=== PATIENT | male | born 1980 | race Caucasian/White ===

== ENCOUNTER 2021-06-09 08:15 | Emergency (ER) | payer SELFPAY | END 2021-06-09 12:37 | disposition home or self-care (01) | LOC: JD.ED 08:15 | DX: S69.91XA Unspecified injury of right wrist, hand and finger(s), initial encounter (principal); Z72.0 Tobacco use; W22.09XA Striking against other stationary object, initial encounter; Y99.0 Civilian activity done for income or pay | CPT/HCPCS: 29125; 73090-26-RT; 73090-RT; 73130-26-RT; 73130-RT; 99282; 99283-25 ==

== ENCOUNTER 2022-03-21 12:08 | Emergency (ER) | payer OTHER ==
[2022-03-21] MEDS ORDERED: Sodium Chloride 0.9% 10 ML Syringe FLUSH PRN (12:23)
[2022-03-21] MEDS ORDERED: Sodium Chloride 0.9% 1,000 ML IV ONE (12:38)
[2022-03-21] MEDS ORDERED: Ondansetron 4 MG/2 ML SDV IVPUSH ONE (12:38)
[2022-03-21] MEDS ORDERED: HYDROmorphone 1 MG/ML Syringe IVPUSH STA (12:38)
[2022-03-21] MEDS ORDERED: Iopamidol 612 MG/ML 100 ML Bottle IVPUSH ONE (12:45)
== END 2022-03-21 14:20 | disposition home or self-care (01) ==
LOC: JD.ED 12:08
DX: R10.10 Upper abdominal pain, unspecified (principal); Z96.89 Presence of other specified functional implants
CPT/HCPCS: 36415; 74177; 74177-26; 80053; 82977; 83690; 83735; 85025; 86140; 96361; 96374; 96375; 99284-25; J1170; J2405; J3490; J7030; Q9967

== ENCOUNTER 2022-10-05 02:35 | Emergency (ER) | payer OTHER ==
[2022-10-05 03:27] LABS: BASOPHILS ABSOLUTE AUTO 0.02 K/mm3 (0.01-0.08); BASOPHILS PERCENT AUTO 0.5 % (0.1-1.2); EOSINOPHILS ABSOLUTE AUTO 0.13 K/mm3 (0.04-0.54); HEMATOCRIT 44.7 % (40.1-51.0); HEMOGLOBIN 15.8 gm/dl (13.7-17.5); LYMPHOCYTES ABSOLUTE AUTO 1.02 K/mm3 (1.32-3.57); LYMPHOCYTES PERCENT AUTO 23.2 % (21.8-53.1); MEAN CORPUSCULAR HEMOGLOBIN 37.3 pg (25.7-32.2); MEAN CORPUSCULAR HGB CONC 35.3 g/dl (32.2-35.5); MEAN CORPUSCULAR VOLUME 105.4 fl (79.0-92.2); MONOCYTES ABSOLUTE AUTO 0.73 K/mm3 (0.30-0.82); MONOCYTES PERCENT AUTO 16.6 % (5.3-12.2); NEUTROPHILS PERCENT AUTO 56.7 % (34.0-67.9); PLATELET COUNT,PLT 153 K/mm3 (163-337); RED BLOOD CELL COUNT 4.24 M/mm3 (4.63-6.08)
[2022-10-05 03:56] LABS: A/G RATIO 1.2 (1-2); ALANINE AMINOTRANSFERASE,ALT 59 U/L (16-63); ALBUMIN 3.5 g/dl (3.4-5.0); ALKALINE PHOSPHATASE 69 U/L (46-116); ANION GAP 12.8 (5-15); ASPARTATE AMNIOTRANSFERASE,AST 49 U/L (15-37); BILIRUBIN TOTAL 0.5 mg/dL (0.2-1.0); BLOOD UREA NITROGEN,BUN 17 mg/dL (7-18); CALCIUM 9.1 mg/dL (8.5-10.1); CARBON DIOXIDE,CO2 27 mEq/L (21-32); CHLORIDE,CL 105 mEq/L (98-107); ESTIMATED GFR 96 mL/min (>60); GLUCOSE RANDOM 97 mg/dL (70-99); POTASSIUM,K 3.8 mEq/L (3.5-5.1); PROTEIN TOTAL,TP 6.5 g/dl (6.4-8.2); SODIUM,NA 141 mEq/L (136-145); TSH 1.531 uIU/mL (0.358-3.74)
[2022-10-05 04:06] LABS: ACETAMINOPHEN 0 ug/mL (10-30)
[2022-10-05 05:19] LABS: APPEARANCE,URINE CLEAR (Clear); BILIRUBIN,URINE NEGATIVE (Negative); COLOR,URINE YELLOW (Yellow); GLUCOSE,URINE NEGATIVE (Negative); KETONES,URINE NEGATIVE (Negative); LEUKOCYTE ESTERASE,URINE NEGATIVE (Negative); NITRITE,URINE NEGATIVE (Negative); OCCULT BLOOD,URINE NEGATIVE (Negative); PROTEIN,URINE NEGATIVE (Negative)
[2022-10-05 05:27] LABS: BARBITURATE SCREEN,URINE NEGATIVE (CUTOFF=200); BENZODIAZEPINES SCREEN,URINE NEGATIVE (CUTOFF=150); BUPRENORPHINE SCREEN,URINE NEGATIVE (CUTOFF=10); METHADONE SCREEN, URINE NEGATIVE (CUT0FF=200); METHAMPHETAMINES SCREEN, URINE NEGATIVE (CUTOFF=500); OXYCODONE SCREEN,URINE NEGATIVE (CUT0FF=100); PROPOXYPHENE SCREEN,URINE NEGATIVE (CUTOFF=300); THC SCREEN,URINE 20 NG/ML NEGATIVE (CUTOFF=50)
[2022-10-05 05:28] LABS: AMPHETAMINES SCREEN, URINE NEGATIVE (CUTOFF=500)
== END 2022-10-05 08:48 ==
LOC: JD.ED 02:35
DX: T14.91XA Suicide attempt, initial encounter (principal); Z20.822 Contact with and (suspected) exposure to COVID-19
CPT/HCPCS: 36415; 80053; 80143; 80179; 80306; 80307; 81003; 84443; 85025; 99285; U0002

== ENCOUNTER 2022-12-03 05:32 | Emergency (ER) | payer OTHER ==
[2022-12-03] MEDS ORDERED: Albuterol/Ipratropium 3.0-0.5 MG/3 ML Neb Soln NEB ONE (05:59)
[2022-12-03 06:20] LABS: INR 0.96; PROTHROMBIN TIME 10.3 SECONDS (9.7-12.0)
[2022-12-03 06:23] LABS: D-DIMER QUANTITATIVE 1.21 mg/L (0.19-0.50)
[2022-12-03 06:28] LABS: BASOPHILS ABSOLUTE AUTO 0.01 K/mm3 (0.01-0.08); BASOPHILS PERCENT AUTO 0.2 % (0.1-1.2); EOSINOPHILS ABSOLUTE AUTO 0.15 K/mm3 (0.04-0.54); EOSINOPHILS PERCENT AUTO 2.4 (0.8-7.0); HEMATOCRIT 49.6 % (40.1-51.0); HEMOGLOBIN 17.3 gm/dl (13.7-17.5); IMMATURE GRAN ABSOLUTE AUTO 0.01 K/mm3 (0.00-0.10); IMMATURE GRAN PERCENT AUTO 0.2 % (<=1.0); LYMPHOCYTES ABSOLUTE AUTO 0.72 K/mm3 (1.32-3.57); LYMPHOCYTES PERCENT AUTO 11.7 % (21.8-53.1); MEAN CORPUSCULAR HEMOGLOBIN 34.9 pg (25.7-32.2); MEAN CORPUSCULAR HGB CONC 34.9 g/dl (32.2-35.5); MEAN CORPUSCULAR VOLUME 100.2 fl (79.0-92.2); MEAN PLATELET VOLUME 11.5 fl (9.4-12.3); MONOCYTES PERCENT AUTO 11.4 % (5.3-12.2); NEUTROPHILS ABSOLUTE AUTO 4.56 K/mm3 (1.78-5.38); NEUTROPHILS PERCENT AUTO 74.1 % (34.0-67.9); PLATELET COUNT,PLT 110 K/mm3 (163-337); RED BLOOD CELL COUNT 4.95 M/mm3 (4.63-6.08); WHITE BLOOD CELL COUNT,WBC 6.15 K/mm3 (4.23-9.07)
[2022-12-03] MEDS ORDERED: Iopamidol 755 Mg/ML 100 ML Bottle IVPUSH ONE (06:44)
[2022-12-03] MEDS ORDERED: Sodium Chloride 0.9% 100 ML IV SCH (06:45)
[2022-12-03 06:54] LABS: ALANINE AMINOTRANSFERASE,ALT 29 U/L (16-63); ALBUMIN 3.2 g/dl (3.4-5.0); ALKALINE PHOSPHATASE 84 U/L (46-116); ANION GAP 12.6 (5-15); ASPARTATE AMNIOTRANSFERASE,AST 5 U/L (15-37); BILIRUBIN TOTAL 0.3 mg/dL (0.2-1.0); BLOOD UREA NITROGEN,BUN 10 mg/dL (7-18); CALCIUM 8.7 mg/dL (8.5-10.1); CARBON DIOXIDE,CO2 26 mEq/L (21-32); CHLORIDE,CL 105 mEq/L (98-107); EST CRCL DRUG DOSING (CG) 104.07 mL/min; ESTIMATED GFR 96 mL/min (>60); GLUCOSE RANDOM 160 mg/dL (70-99); POTASSIUM,K 3.6 mEq/L (3.5-5.1); PROTEIN TOTAL,TP 6.4 g/dl (6.4-8.2); SODIUM,NA 140 mEq/L (136-145)
[2022-12-03 06:58] LABS: TROPONIN I HIGH SENSITIVITY < 4 pg/mL (<=76)
[2022-12-03] MEDS ORDERED: Apixaban 5 MG Tab PO ONE (08:35)
== END 2022-12-03 08:51 | disposition home or self-care (01) ==
LOC: JD.ED 05:32
DX: I26.99 Other pulmonary embolism without acute cor pulmonale (principal); Z79.01 Long term (current) use of anticoagulants; Z72.0 Tobacco use
CPT/HCPCS: 36415; 71045; 71275; 80053; 84484; 85025; 85379; 85610; 93005; 94640; 99285; A9270; J3490; Q9967; 93010; 99284; J7620-GY